=== PATIENT | female | born 1985 | race Caucasian/White ===

== ENCOUNTER 2021-11-13 20:14 | Inpatient (IN) | payer OTHER ==
[~2021-11-13] VITALS: Ht 157.5 cm; Wt 124.0 kg
[2021-11-13 20:26] VITALS: BP 146/96
[2021-11-13 20:32] VITALS: BP 120/53
[2021-11-13 20:46] VITALS: BP 111/34
[2021-11-13 21:42] LABS: HEMATOCRIT 37.5 % (37.0-47.0); HEMOGLOBIN 12.1 g/dl (12.0-16.0); IMMATURE GRANULOCYTES 0.3 % (0.0-5.0); MEAN CELL VOLUME 89.1 fL CALC (80.0-100.0); MEAN CORPUSCULAR HGB 28.7 pG CALC (26.0-32.0); MEAN CORPUSCULAR HGB CONC 32.3 g/dL CAL (32.0-36.0); NEUT# 12.25 thou/uL (2.00-7.15); RED BLOOD COUNT 4.21 mill/uL (4.20-5.60); RED CELL DISTRI WIDTH 14.2 % (11.5-15.5)
[2021-11-13 21:56] VITALS: BP 109/53
[2021-11-13 22:03] VITALS: BP 101/70
[2021-11-13 22:04] LABS: ALBUMIN 4.4 g/dL (3.2-5.0); BILIRUBIN, TOTAL 0.3 mg/dL (0.0-1.4); MAGNESIUM 1.8 mg/dL (1.6-2.3); POTASSIUM 4.4 mmol/l (3.5-5.1); TOTAL PROTEIN 8.4 g/dL (6.3-8.2)
[2021-11-13 22:09] LABS: CREATININE 5.9 mg/dL (0.5-1.0)
[2021-11-13 23:40] VITALS: BP 102/63
[2021-11-14] VITALS (79 sets, daily range): BP systolic 30–197; BP diastolic 15–175
[2021-11-14 01:49] LABS: URINE BILIRUBIN - DIPSTICK NEGATIVE (NEGATIVE); URINE BLOOD DIPSTICK MODERATE (NEGATIVE); URINE COLOR YELLOW; URINE GLUCOSE - DIPSTICK NEGATIVE (NEGATIVE); URINE KETONE NEGATIVE (NEGATIVE); URINE LEUK ESTERASE SMALL (NEGATIVE); URINE NITRITE - DIPSTICK NEGATIVE (Negative); URINE PH 5.5 (4.5-8.0); URINE PROTEIN - DIPSTICK 30 mg/dL (NEG-TRACE); URINE UROBILINOGEN - DIPSTICK 0.2 E.U./dL (0.2)
[2021-11-14 01:56] LABS: URINE BACTERIA MANY hpf; URINE SQUAMOUS EPITHELIAL CELL FEW EPI/hpf (0-FEW)
[2021-11-14 01:57] LABS: URINE CASTS FEW lpf (NONE-RARE); URINE HYALINE CAST RARE lpf (NONE-RARE)
[2021-11-14 05:30] LABS: HEMATOCRIT 34.3 % (37.0-47.0); HEMOGLOBIN 11.2 g/dl (12.0-16.0); IMMATURE GRANULOCYTES 0.5 % (0.0-5.0); MEAN CELL VOLUME 90.5 fL CALC (80.0-100.0); MEAN CORPUSCULAR HGB 29.6 pG CALC (26.0-32.0); MEAN CORPUSCULAR HGB CONC 32.7 g/dL CAL (32.0-36.0); NEUT# 10.95 thou/uL (2.00-7.15); RED BLOOD COUNT 3.79 mill/uL (4.20-5.60); RED CELL DISTRI WIDTH 14.3 % (11.5-15.5)
[2021-11-14 05:44] LABS: POTASSIUM 4.2 mmol/l (3.5-5.1)
[2021-11-14 05:46] LABS: CREATININE 4.4 mg/dL (0.5-1.0)
[2021-11-14 14:10] LABS: CREATININE 3.8 mg/dL (0.5-1.0); POTASSIUM 3.7 mmol/l (3.5-5.1)
[2021-11-15] VITALS (112 sets, daily range): BP systolic 51–159; BP diastolic 21–141
[2021-11-15 06:20] LABS: POTASSIUM 3.9 mmol/l (3.5-5.1)
[2021-11-15 06:40] LABS: ALBUMIN 2.5 g/dL (3.2-5.0); BILIRUBIN, TOTAL 0.5 mg/dL (0.0-1.4); CREATININE 2.8 mg/dL (0.5-1.0); TOTAL PROTEIN 5.2 g/dL (6.3-8.2)
[2021-11-15 06:41] LABS: MAGNESIUM 0.9 mg/dL (1.6-2.3)
[2021-11-15 06:48] LABS: HEMATOCRIT 31.1 % (37.0-47.0); IMMATURE GRANULOCYTES 0.7 % (0.0-5.0); MEAN CELL VOLUME 89.1 fL CALC (80.0-100.0); MEAN CORPUSCULAR HGB 28.7 pG CALC (26.0-32.0); MEAN CORPUSCULAR HGB CONC 32.2 g/dL CAL (32.0-36.0); NEUT# 15.18 thou/uL (2.00-7.15); RED BLOOD COUNT 3.49 mill/uL (4.20-5.60); RED CELL DISTRI WIDTH 14.4 % (11.5-15.5)
[2021-11-15] MEDS ORDERED: TOPROL XL25 M1 PO (14:04)
[2021-11-15] MEDS ORDERED: PROTONIX40 M2 PO (14:04)
[2021-11-15] MEDS ORDERED: LAMICTAL100 M1 PO (14:05)
[2021-11-15] MEDS ORDERED: SEROQUEL400 MG PO (14:06)
[2021-11-15] MEDS ORDERED: LAMOTRIGINE25 M1 PO (14:06)
[2021-11-15] MEDS ORDERED: TOPIRAMATE50 MG PO (14:06)
[2021-11-15] MEDS ORDERED: GABAPENTIN300 M2 PO ×2 (14:07)
[2021-11-15] MEDS ORDERED: SERTRALINE50 MG PO (14:28)
[2021-11-15] MEDS ORDERED: LISINOP/HCTZ1 TA1 PO (14:29)
[2021-11-15 20:31] LABS: HEMATOCRIT 31.5 % (37.0-47.0); HEMOGLOBIN 10.5 g/dl (12.0-16.0); IMMATURE GRANULOCYTES 0.7 % (0.0-5.0); MEAN CELL VOLUME 87.3 fL CALC (80.0-100.0); MEAN CORPUSCULAR HGB 29.1 pG CALC (26.0-32.0); MEAN CORPUSCULAR HGB CONC 33.3 g/dL CAL (32.0-36.0); NEUT# 12.98 thou/uL (2.00-7.15); RED BLOOD COUNT 3.61 mill/uL (4.20-5.60); RED CELL DISTRI WIDTH 14.5 % (11.5-15.5)
[2021-11-15 20:42] LABS: CREATININE 2.1 mg/dL (0.5-1.0); POTASSIUM 3.9 mmol/l (3.5-5.1)
[2021-11-16] VITALS (103 sets, daily range): BP systolic 46–214; BP diastolic 31–159
[2021-11-16 05:38] LABS: HEMATOCRIT 32.9 % (37.0-47.0); HEMOGLOBIN 10.9 g/dl (12.0-16.0); IMMATURE GRANULOCYTES 1.1 % (0.0-5.0); MEAN CELL VOLUME 86.6 fL CALC (80.0-100.0); MEAN CORPUSCULAR HGB 28.7 pG CALC (26.0-32.0); MEAN CORPUSCULAR HGB CONC 33.1 g/dL CAL (32.0-36.0); NEUT# 13.68 thou/uL (2.00-7.15); RED BLOOD COUNT 3.8 mill/uL (4.20-5.60); RED CELL DISTRI WIDTH 14.3 % (11.5-15.5)
[2021-11-16 05:50] LABS: ALBUMIN 2.7 g/dL (3.2-5.0); CREATININE 1.9 mg/dL (0.5-1.0); POTASSIUM 3.9 mmol/l (3.5-5.1); TOTAL PROTEIN 5.8 g/dL (6.3-8.2)
[2021-11-16 05:56] LABS: BILIRUBIN, TOTAL 0.2 mg/dL (0.0-1.4); MAGNESIUM 1.6 mg/dL (1.6-2.3)
[2021-11-17] VITALS (52 sets, daily range): BP systolic 76–124; BP diastolic 43–79
[2021-11-17 06:36] LABS: HEMATOCRIT 27.7 % (37.0-47.0); HEMOGLOBIN 9.1 g/dl (12.0-16.0); IMMATURE GRANULOCYTES 0.7 % (0.0-5.0); MEAN CELL VOLUME 87.4 fL CALC (80.0-100.0); MEAN CORPUSCULAR HGB 28.7 pG CALC (26.0-32.0); MEAN CORPUSCULAR HGB CONC 32.9 g/dL CAL (32.0-36.0); NEUT# 6.21 thou/uL (2.00-7.15); RED BLOOD COUNT 3.17 mill/uL (4.20-5.60)
[2021-11-17 06:57] LABS: CREATININE 1.6 mg/dL (0.5-1.0); POTASSIUM 3.7 mmol/l (3.5-5.1)
[2021-11-18] VITALS (7 sets, daily range): BP systolic 79–123; BP diastolic 37–74
[2021-11-18 05:27] LABS: HEMATOCRIT 26.3 % (37.0-47.0); HEMOGLOBIN 8.7 g/dl (12.0-16.0); MEAN CELL VOLUME 88.3 fL CALC (80.0-100.0); MEAN CORPUSCULAR HGB 29.2 pG CALC (26.0-32.0); MEAN CORPUSCULAR HGB CONC 33.1 g/dL CAL (32.0-36.0); RED BLOOD COUNT 2.98 mill/uL (4.20-5.60); RED CELL DISTRI WIDTH 15.1 % (11.5-15.5)
[2021-11-18 05:44] LABS: CREATININE 1.4 mg/dL (0.5-1.0); MAGNESIUM 1.2 mg/dL (1.6-2.3); POTASSIUM 3.4 mmol/l (3.5-5.1)
[2021-11-18] MEDS ORDERED: CIPROFLOXACN500 MG PO (12:14)
== END 2021-11-18 15:07 | disposition home or self-care (01) | DRG 871 ==
LOC: ED 20:14 → MS2 11-14 01:15 → ICU 11-14 10:42 → MS2 11-17 13:45
PROVIDERS: Family Medicine; Hospitalist; Internal Medicine; ADMIT Internal Medicine; ATTEND Internal Medicine
PROC: 02HV33Z Insertion of Infusion Device into Superior Vena Cava, Percutaneous Approach (ICD-10-PCS; principal; 2021-11-14)
PROC: 0T9B70Z Drainage of Bladder with Drainage Device, Via Natural or Artificial Opening (ICD-10-PCS; 2021-11-14)
DX: A41.9 Sepsis, unspecified organism (principal); N17.0 Acute kidney failure with tubular necrosis; N12 Tubulo-interstitial nephritis, not specified as acute or chronic; R65.20 Severe sepsis without septic shock; E86.0 Dehydration; G60.0 Hereditary motor and sensory neuropathy; F41.9 Anxiety disorder, unspecified; F31.9 Bipolar disorder, unspecified; B96.1 Klebsiella pneumoniae [K. pneumoniae] as the cause of diseases classified elsewhere; T39.395A Adverse effect of other nonsteroidal anti-inflammatory drugs [NSAID], initial encounter; Z88.1 Allergy status to other antibiotic agents; Z99.3 Dependence on wheelchair; Z87.891 Personal history of nicotine dependence; Z20.822 Contact with and (suspected) exposure to COVID-19
CPT/HCPCS: J0692; J3475; S0073

== ENCOUNTER 2022-11-25 17:21 | Emergency (ER) | payer OTHER ==
[2022-11-25] VITALS (9 sets, daily range): BP systolic 125–155; BP diastolic 69–99
[~2022-11-25] VITALS: Ht 157.5 cm; Wt 115.0 kg
[~2022-11-25 17:21] MED LIST: CIPROFLOXACN500 MG PO; GABAPENTIN300 M2 PO; LAMICTAL100 M1 PO; LAMOTRIGINE25 M1 PO; LISINOP/HCTZ1 TA1 PO; PROTONIX40 M2 PO; SEROQUEL400 MG PO; SERTRALINE50 MG PO; TOPIRAMATE50 MG PO; TOPROL XL25 M1 PO
[2022-11-25] MEDS ORDERED: CYCLOBENZAPRINE10 MG PO (20:09)
[2022-11-25] MEDS ORDERED: NAPROXEN500 MG PO (20:09)
== END 2022-11-25 20:26 | disposition home or self-care (01) ==
LOC: ED 17:21
DX: S93.401A Sprain of unspecified ligament of right ankle, initial encounter (principal); F31.9 Bipolar disorder, unspecified; F41.9 Anxiety disorder, unspecified; M21.371 Foot drop, right foot; W17.89XA Other fall from one level to another, initial encounter; Y92.530 Ambulatory surgery center as the place of occurrence of the external cause